=== PATIENT | female | born 1980 | race American Indian/Alaskan Native ===

== ENCOUNTER 2021-06-06 13:00 | Emergency (ER) | payer SELFPAY ==
[2021-06-06 14:10] LABS: Bilirubin,Urine NEG (Negative); Blood,Urine NEG (Negative); Color,Urine Yellow (Yellow); HCG Qualitative,Urine Negative (Negative); Mucus,Urine FEW /HPF; Urobilinogen,Urine < 2.0 mg/dL (<2.0)
[2021-06-06] MEDS ORDERED: KETOROLAC 10 MG TAB PO ONE (14:50)
[2021-06-06] MEDS ORDERED: NITROFURANTOIN MONOHYD/M-CRYST 100 MG CAP PO ONE (14:50)
--- NOTE | 2021-06-06 14:56 | Emergency Department Report ---
<ROGERIONIKKIANNELISE Molbey - Last Filed: 06/06/21 17:37> ED Female HPI - General Chief complaint: Urogenital-Female Stated complaint: BACK PAIN/CHILLS/DIABETES Time Seen by Provider: 06/06/21 13:19 Source: patient Mode of arrival: Ambulatory Limitations: No Limitations - History of Present Illness Initial comments: 41-year-old female with a past medical history of hypertension and diabetes presents to the emergency department for evaluation of right lower back pain, chills, urinary frequency, dysuria and right flank pain for the past several days. She denies fever and vaginal discharge. She also requests refill of her Metformin and lisinopril prescriptions. She states that her PCP is in [place] and she will not be able to see him before she needs a refill. MD Complaint: dysuria -: Gradual, days(s) (3) Location: other (Right lower back) Radiation: R flank Severity: mild Severity scale (0 -10): 5 Quality: aching Consistency: intermittent Worsens with: urination Are you Now?: No Associated Symptoms: abdominal pain, fever/chills, dysuria. denies: vaginal discharge, vaginal bleeding, nausea/vomiting, headaches, loss of appetite, hematuria, rash, seizure, shortness of breath, syncope, weakness - Related Data Previous Rx's Medication Instructions Recorded Last Taken Type Metformin HCl [metFORMIN] 1,000 mg PO DAILY #30 tab 06/06/21 Unknown Rx Naproxen [Naprosyn TAB] 500 mg PO BID #14 tablet 06/06/21 Unknown Rx Nitrofurantoin Sierra/M-Cryst 100 mg PO Q12HR #14 capsule 06/06/21 Unknown Rx [Macrobid CAP] lisinopriL [Lisinopril] 20 mg PO DAILY #30 tab 06/06/21 Unknown Rx Allergies Allergy/AdvReac Type Severity Reaction Status Date / Time No Known Allergies Allergy Unverified 06/06/21 13:02 ED Review of Systems Comment: All other systems reviewed and negative Constitutional: chills. denies: diaphoresis, fever, malaise, weakness Eyes: denies: eye pain ENT: denies: ear pain Respiratory: denies: cough, shortness of breath, wheezing Cardiovascular: denies: chest pain, palpitations, dyspnea on exertion, orthopnea, edema, syncope, paroxysmal nocturnal dyspnea Endocrine: no symptoms reported Gastrointestinal: abdominal pain (Intermittent right side). denies: nausea, vomiting Genitourinary: dysuria, frequency. denies: urgency, hematuria, discharge Musculoskeletal: back pain Skin: denies: rash, lesions Neurological: denies: headache, weakness, numbness, paresthesias, confusion, abnormal gait Psychiatric: denies: anxiety Hematological/Lymphatic: denies: easy bleeding, easy bruising ED Past Medical Hx - Medications Home Medications: Home Medications Medication Instructions Recorded Confirmed Last Taken Type Metformin HCl [metFORMIN] 1,000 mg PO DAILY #30 tab 06/06/21 Unknown Rx Naproxen [Naprosyn TAB] 500 mg PO BID #14 tablet 06/06/21 Unknown Rx Nitrofurantoin Sierra/M-Cryst 100 mg PO Q12HR #14 capsule 06/06/21 Unknown Rx [Macrobid CAP] lisinopriL [Lisinopril] 20 mg PO DAILY #30 tab 06/06/21 Unknown Rx ED Physical Exam - General Limitations: No Limitations General appearance: alert, in no apparent distress - Head Head exam: Present: atraumatic, normocephalic - Eye Eye exam: Present: normal appearance. Absent: conjunctival injection - Neck Neck exam: Present: normal inspection - Respiratory Respiratory exam: Present: normal lung sounds bilaterally. Absent: respiratory distress, wheezes, rales, rhonchi, chest wall tenderness - Cardiovascular Cardiovascular Exam: Present: regular rate, normal heart sounds - GI/Abdominal GI/Abdominal exam: Present: soft, normal bowel sounds. Absent: distended, tenderness, guarding, rebound, rigid - Extremities Exam Extremities exam: Present: normal inspection - Back Exam Back exam: Present: normal inspection, CVA tenderness (R). Absent: tenderness, CVA tenderness (L), muscle spasm, paraspinal tenderness, vertebral tenderness - Neurological Exam Neurological exam: Present: alert, oriented X3 - Psychiatric Psychiatric exam: Present: normal affect, normal mood - Skin Skin exam: Present: warm, dry, intact, normal color ED Medical Decision Making - Medical Decision Making 41-year-old female with a past medical history of hypertension and diabetes presents to the emergency department for evaluation of right lower back pain, chills, urinary frequency, dysuria and right flank pain for the past several days. She denies fever and vaginal discharge. She also requests refill of her Metformin and lisinopril prescriptions. She states that her PCP is in [place] and she will not be able to see him before she needs a refill. UA positive for large amounts of epithelial cells along with CVA tenderness, urinary frequency, and dysuria, so patient will be treated for urinary tract infection. She will be given Macrobid 7-day course 100 mg twice a day. She was also given 1 month prescription for refill of Metformin and lisinopril. She was given referral to primary care provider in [facility] that she can use. She had original prescription bottles with her. She was advised to take medications as prescribed and follow-up with primary care provider for further evaluation and management. She was advised to return to the ER for any concerning symptoms. ED Disposition Disposition: 01 HOME / SELF CARE / HOMELESS Is pt being admited?: No Does the pt Need Aspirin: No Condition: Stable Instructions: Urinary Tract Infection, Adult, [id number] Additional Instructions: Take medications as prescribed. Follow-up with primary care provider for further evaluation or worsening symptoms. Prescriptions: lisinopriL [Lisinopril] 20 mg PO DAILY #30 tab Nitrofurantoin Sierra/M-Cryst [Macrobid CAP] 100 mg PO Q12HR #14 capsule Metformin HCl [metFORMIN] 1,000 mg PO DAILY #30 tab Naproxen [Naprosyn TAB] 500 mg PO BID #14 tablet Referrals: HERLINDA NAJERA MD [Referring] - 3-5 Days Forms: Work/School Release Form(ED) Time of Disposition: 14:56 <ZUHAIR MAGALLON - Last Filed: 06/06/21 19:09> ED Review of Systems ROS: Stated complaint: BACK PAIN/CHILLS/DIABETES Other details as noted in HPI ED Course Vital Signs 06/06/21 06/06/21 13:05 15:32 Temperature 98.7 F Pulse Rate 78 80 Respiratory 17 16 Rate Blood Pressure 211/115 212/101 [Right] O2 Sat by Pulse 98 100 Oximetry Critical care attestation.: If time is entered above; I have spent that time in minutes in the direct care of this critically ill patient, excluding procedure time.
[2021-06-06 15:38] VITALS: BP 212/101
== END 2021-06-06 15:38 | disposition home or self-care (01) ==
LOC: ED 13:00
DX: M54.50 Low back pain, unspecified (principal); R35.0 Frequency of micturition; R30.0 Dysuria; R10.31 Right lower quadrant pain
CPT/HCPCS: 81001; 81025; 99283

== ENCOUNTER 2021-09-12 16:03 | Emergency (ER) | payer SELFPAY ==
[2021-09-12 16:20] VITALS: BP 214/115
[2021-09-12 17:07] LABS: Alanine Aminotransferase 13 units/L (7-56); Albumin 4.6 g/dL (3.9-5); BUN/Creatinine Ratio 11; Blood Urea Nitrogen 9 mg/dL (7-17); Calcium 9.4 mg/dL (8.4-10.2); Hemolysis Index 2
[2021-09-12 17:09] LABS: Mean Corpuscular HGB Conc 30 % (30-34); Red Blood Count 5.42 M/mm3 (3.65-5.03)
[2021-09-12 17:22] LABS: Hematocrit 32.7 % (30.3-42.9); Hemoglobin 9.8 gm/dl (10.1-14.3)
[2021-09-12 17:23] LABS: Mean Corpuscular Volume 60 fl (79-97); Red Cell Distribution Width 20.6 % (13.2-15.2)
[2021-09-12 18:22] LABS: Platelet Count 231 K/mm3 (140-440)
--- NOTE | 2021-09-13 12:30 | Electrocardiograph Report ---
[facility] Test Date: 2021-09-12 Test Time: 16:23:39 Pat Name: HONEY SABA Department: Room: Gender: F Health And Wellness Coach: ASHLEE : 1980 Requested By: SUMAYA ALLISON Order Number: [id number] Reading MD: Arnold Fabian Measurements Intervals [place] Rate: 77 P: 18 VA: 118 QRS: -11 QRSD: 107 T: 43 QT: 392 QTc: 445 Interpretive Statements Sinus rhythm Probable left ventricular hypertrophy No previous ECG available for comparison Electronically Signed On 09-13-2021 12:29:50 EDT by Arnold Fabian
== END 2021-09-12 21:00 | disposition left against medical advice (07) ==
LOC: ED 16:03
DX: Z00.00 Encounter for general adult medical examination without abnormal findings (principal); Z53.21 Procedure and treatment not carried out due to patient leaving prior to being seen by health care provider
CPT/HCPCS: 36415; 80053; 82962; 85027; 93005